=== PATIENT | male | born 1980 | race Caucasian/White ===

== ENCOUNTER 2019-02-01 13:55 | Emergency (ER) | payer MEDICAID, SELFPAY ==
[2019-02-01 13:57] VITALS: BP 150/98; PULSE 133; RESP 22; TEMP 36.6; O2SAT 98; BMI 26.8
--- NOTE | 2019-02-01 14:42 | CT_ITS ---
STUDY: CT ABDOMEN AND PELVIS WITH CONTRAST REASON FOR EXAM: Male, 38 years old. Right abdominal pain, nausea and vomiting. RADIATION DOSAGE (If Supplied By Facility): CTDIvol = ( 11.8 ) mGy, DLP = ( 865.22 ) mGycm TECHNIQUE: Transaxial images were obtained from the dome of the diaphragm to the symphysis pubis without oral contrast. IV 100mL Isovue-300 100 was administered. Sagittal and coronal images were reconstructed. Individualized dose optimization techniques were used for this CT. COMPARISON: None. FINDINGS: Lung bases are clear. Heart size is normal. The liver is unremarkable. The gallbladder is unremarkable. The spleen and pancreas are unremarkable. The adrenal glands are normal. The kidneys are unremarkable. No stones or hydronephrosis. The aorta is normal in caliber. There is no free fluid, free air, or organized collection. No bowel obstruction or inflammatory change. Normal appendix. Urinary bladder is unremarkable. Normal abdominal wall. Normal osseous structures. CT/Abdomen/Pelvis W IV Cont ONLY IMPRESSION: Normal CT of the abdomen and pelvis. Electronically Signed: Velma Pulliam MD at 16:20 EDT Tel , Service support ,
--- NOTE | 2019-02-01 14:43 | ED.VIS.PSYCH ---
History of Present Illness Chief Complaint: Confusion Informant: Patient Onset: Today Associated Symptoms: Depressed, Decreased Concentration. Negative for: Change in Eating, Change in sleeping, Hopelessness, Suicidal Thoughts, Visual Hallucinations, Auditory Hallucinations Specific plan (suicidal thought): none Narrative: Patient was pink slipped here by police because he was behind a [employer] restaurant digging in the ground without his shirt on, frantic, saying that he was trying to bury his dad. He pointed to a leaf and indicated that it was indeed his father. He then tried to enter the restaurant saying that it was not [employer] and that it was land that his mother brought but and he was asking the officer to ask his friend but no one else was there. He also was in and out of traffic causing a possible risk of harm to himself for unknown reason. The patient does not initially state all of this but states that he blacked out and does not remember stuff although when I discussed the officers above description with him, he states he does remember all of that indicates that I know I look crazy. He states that his dad is on oxygen and is sick in hopes that he does not but that he may. His father lives here, patient lives in [place], he states he is here because he and his brother were going to visit his father but his brother was in the [facility] [employer] and likes to drink a lot and drinks too much and he could not keep up. 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 Additionally, he states for the past 3 days he has been having right-sided abdominal pain, bright red blood per rectum and melena off and on, with nausea and dry heaving, consistent with a Crohn's flareup he has had in the past. He has had partial bowel resection. No other abdominal surgeries. He was also diagnosed with a fatty liver. Takes no psychiatric medications. Denies suicidal ideation. 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 In addition to all of this, patient states that his girlfriend of almost 2 years, with which he has a child, broke up with him telling him that she cheated on him when she dropped him off to go to a football game today. He states that I do not usually love girls, but I wanted to her. - Past Medical History (1) Fatty liver Status: Chronic (2) Crohn's disease Status: Chronic Past Medical History - Allergies and Home Meds Allergies/Adverse Reactions: Allergies No Known Allergies Allergy (Verified 02/01/19 13:56) Primary Care Physician: Care Physician,No Primary [Primary Care Provider] - Surgical History: - - partial bowel resection - Crohn's Lives: Alone Smoking Status: Current every day smoker Alcohol: Occasional Drugs: None Review of Systems General: Reports: Malaise - I feel dehydrated. Denies: Chills, Fever, Sweats Eyes: Denies: Visual changes - bilaterally, Diplopia ENT: Denies: Bilateral ear pain, Rhinorrhea, Sore throat Cardiovascular: Denies: Chest pain, Palpitations Respiratory: Denies: Dyspnea, Cough, Dyspnea on exertion Gastrointestinal: Reports: Abdominal pain, Nausea, Vomiting, Diarrhea, Melena, Hematochezia Genitourinary: Denies: Dysuria, Hematuria, Frequency Musculoskeletal: Denies: Neck pain, Back pain, Swelling, Extremity Pain Skin: Denies: Rash, Wounds Neurological: Denies: Headache, Weakness, Numbness Physical Exam Vital Signs/Narrative: Vital Signs Temp Pulse Resp BP Pulse Ox 02/01/19 13:57 97.8 F 133 H 22 H 150/98 H 98 Inital Vital Signs reviewed: Yes General: Well nourished, Well developed, - - NAD Head: Normocephalic, Atraumatic Eyes: Perrl, EOMI ENT: Moist mucous membranes, No rhinorrhea Neck: Supple, Nontender Cardiovascular: Regular rate, Regular rhythm, No murmurs, Tachycardia Respiratory: No distress, CTA bilaterally, Chest nontender Abdomen: Soft, Nondistended, Normal bowel sounds, No masses, Tender - R side; benign on left, Guarding Back: Nontender, Normal Inspection Extremities: Nontender, No Edema Skin: Normal color, No rash, No Trauma Neurological: Alert, Oriented x3, Cranial nerves II-XII grossly intact, Normal Strength, Normal Sensation Psych: Normal Speech Pattern, No suicidal or homicidal ideation, Normal Appearance, Depressed, Labile, Delusions - that father was , although denies it now. Negative for: Hallucinations Diagnostic/Tx/Re-eval Impressions Abdomen/Pelvis CT 02/01/19 14:42 IMPRESSION: Normal CT of the abdomen and pelvis. Electronically Signed: Velma Pulliam MD at 16:20 EDT Tel , Service support , 02/01/19 14:42 Abdomen/Pelvis W IV Cont ONLY [CT] Stat Laboratory Results 02/01/19 02/01/19 02/01/19 15:05 15:05 15:05 WBC 12.3 H RBC 4.79 Hgb 14.4 Hct 42.3 MCV 88.3 MCH 30.1 MCHC 34.0 RDW Std Deviation 40.8 RDW Coeff of Ana 12.5 Plt Count 250 MPV 9.5 Immature Gran % (Auto) 0.400 Neut % (Auto) 74.2 H Lymph % (Auto) 15.1 L [place] % (Auto) 9.6 Eos % (Auto) 0.4 Baso % (Auto) 0.3 Absolute Neuts (auto) 9.1 H Absolute Lymphs (auto) 1.86 Nucleated RBC % 0 Sodium 144 Potassium 3.4 L Chloride 111 H Carbon Dioxide 26.0 Anion Gap 7 BUN 20 H Creatinine 1.32 H Estim Creat Clear Calc 72.69 Est GFR (MDRD) Af Amer 78 Est GFR (MDRD) Non-Af 64 BUN/Creatinine Ratio 15.2 Glucose 83 Calcium 10.0 Total Bilirubin 1.40 H AST 58 H ALT 34 Alkaline Phosphatase 69 Total Protein 8.2 Albumin 5.0 Globulin 3.2 Albumin/Globulin Ratio 1.6 TSH 1.22 Ethyl Alcohol 7.0 Still waiting on urinalysis and drug screen, but the rest of the patient's labs are unremarkable except for mild leukocytosis and mild elevation of his total bilirubin, I do not have an old one for comparison but his CT abdomen/pelvis with IV contrast is normal showing no complications of Crohn's. He may be having a flareup, he can see his GI doctor for the particulars. However at this time he is medically cleared for crisis evaluation. Urinalysis and urine toxicology returned all negative. Awaiting crisis evaluation. Patient has been outside of the room wanting to leave and security was necessary to restrict him from leaving the patient was told several times that he is pink slipped and cannot leave until crisis evaluated. Crisis did evaluate the patient. They felt he can be safely discharged home since he was not homicidal or suicidal. I directed them to the pink slip that the police wrote up, as they had not seen it yet. After reading it, they too had other concerns and went back to reevaluate the patient, but then felt that he may safely be discharged to follow-up with his counselor this coming week. He is here with his who is taking him home. With regards to his Crohn's, he was in no discomfort throughout his entire time verbally arguing with the police about trying to leave his room. I feel he is stable to follow-up as an outpatient, he is asking for omeprazole which I thought was reasonable, states he had a history of ulcers and was describing melena with stable counts. ED Disposition - Plan for ED Patient: Disposition: Home or Assisted Living Diagnosis: Exacerbation of Crohn's disease, Acute reaction to situational stress Instructions: [place] to Managing Stress, Crohn's Disease Prescriptions: Omeprazole 1 cap PO DAILY #30 capsule. Prescription Printed Referrals: Kenn Valerio MD [NON-STAFF] - 3-5 Days (or your own pediatric anesthesiologist)
[2019-02-01 15:11] LABS: Absolute Lymphocyte Count 1.86 X10^3/uL (0.83-4.51); Absolute Neutrophil Count 9.1 X10^3/uL (2.0-7.7); Basophil# 0.04 X10^3/uL; Basophil% 0.3 % (0-1); Eosinophil# 0.05 X10^3/uL; Eosinophils% 0.4 % (0-5); Hematocrit 42.3 % (40-54); Hemoglobin 14.4 g/dL (13.0-16.5); Lymphocyte # 1.86 X10^3/ul (4.0); Lymphocyte % 15.1 % (19-41); Mean Corpuscular Hgb 30.1 pg (27.0-32.0); Mean Corpuscular Volume 88.3 fL (80-94); Mean Platelet Vol. 9.5 fl (6.2-12.0); Monocyte# 1.18 X10^3/uL; Monocyte% 9.6 % (0-10); NRBC Flagged by Analyzer 0 % (0-5); Neutrophil # 9.14 X10^3/uL (2.7-7.7); Neutrophil % 74.2 % (47-70); Platelet Count 250 K/mm3 (150-450); RBC Distribution Width CV 12.5 % (11.6-14.6); RBC Distribution Width SD 40.8 fl (35.1-43.9); Red Blood Count 4.79 M/mm3 (4.6-6.2); White Blood Count 12.3 K/mm3 (4.4-11.0)
[2019-02-01] MEDS: Dicyclomine 10 MG Capsule 20 MG PO (15:12)
[2019-02-01] MEDS: 0.9% Normal Saline 1,000 ML 1000 ML IV (15:14)
[2019-02-01 15:35] LABS: ALB/GLOB Ratio 1.6 RATIO (0.9-2.4); AST(SGOT) 58 U/L (15-37); Alanine Aminotransfer ALT/SGPT 34 U/L (16-61); Alkaline Phosphatase 69 U/L (45-117); Anion Gap 7 (5-15); BUN 20 mg/dL (7-18); BUN/Creat Ratio 15.2 RATIO (10-20); Chloride 111 mmol/L (98-107); Creatinine, Serum 1.32 mg/dL (0.70-1.30); EST Glomerular Filtration Rate 64 mL/min (>60); Est Glom Filt Rate - Afr Amer 78 mL/min (>60); Estimated Creatinine Clearance 72.69 ml/min; Globulin 3.2 g/dL (2.2-4.2); Glucose 83 mg/dL (74-106); Potassium 3.4 mmol/L (3.5-5.1); Protein, Total 8.2 g/dL (6.4-8.2); Sodium Level 144 mmol/L (136-145); Thyroid Stim Hormone (TSH) 1.22 uIU/mL (0.358-3.74)
[2019-02-01 17:23] VITALS: BP 157/99; PULSE 88; RESP 16; O2SAT 96
[2019-02-01 18:45] LABS: Bacteria 0 SEEN /hpf (None Seen); Mucous, Urine 0 SEEN /hpf (<or=2+); Red Blood Cells-Urine 0 SEEN /hpf (0-5); Squamous Epithelial Cells - UA 0 SEEN /hpf (0-5); White Blood Cells 0 SEEN /hpf (0-5)
[2019-02-01 18:47] LABS: Glucose, Dipstick Normal (Normal); Ketone-Dipstick Negative (Negative); Leukocyte Esterase-Dipstick Negative /ul (Negative); Nitrite-Dipstick Negative (Negative); Occult Blood-Urine Negative /ul (Negative); Protein-Dipstick Negative (Negative); Specific Gravity, Urine 1.005 (1.002-1.030); Urine Bilirubin Dipstick Negative (Negative); Urine Clarity Clear (Clear); Urine Urobilinogen Normal (Normal)
[2019-02-01 18:49] LABS: Color, Urine SEE COMMENT BELOW (Yellow)
--- NOTE | 2019-02-01 19:31 | NURSING ---
CALLED CRISIS AT 1930
[2019-02-01 19:32] LABS: Amphetamine Urine VISTA NEGATIVE (<1000 ng/mL); Barbiturate Urine VISTA NEGATIVE (< 200 ng/mL); Benzodiazepine Urine VISTA NEGATIVE (< 200 ng/mL); Cocaine Urine VISTA NEGATIVE (< 300 ng/mL); Ecstacy Urine VISTA NEGATIVE (< 500 ng/mL); Methadone Urine VISTA NEGATIVE (< 300 ng/mL); PCP Urine VISTA NEGATIVE (< 25 ng/mL); THC Urine VISTA NEGATIVE (< 50 ng/mL); Vista UDS pH Range 7
[2019-02-01 21:16] VITALS: BP 157/99; PULSE 88; RESP 15; O2SAT 98
== END 2019-02-01 21:20 | disposition home or self-care (01) ==
PROVIDERS: Emergency Provider Emergency Medicine
DX: K50.90 Crohn's disease, unspecified, without complications (principal); F17.200 Nicotine dependence, unspecified, uncomplicated
CPT/HCPCS: 74177; 80053; 80307; 80320; 81001; 84443; 85025; 96361; 96374; 99285; J7030; Q9967; A4216; G0480; J2405